=== PATIENT | male | born 1990 | race Caucasian/White ===

== ENCOUNTER 2020-10-06 19:25 | Emergency (ER) | payer OTHER, BC ==
[2020-10-06] MEDS ORDERED: Ketorolac 60 MG/2 ML SDV IM ONE (20:07)
--- NOTE | 2020-10-06 20:10 | EDM.PDOC ---
ED HPI GENERAL MEDICAL PROBLEM - General Chief Complaint: Upper Extremity Injury/Pain Stated Complaint: LEFT SHOULDER PAIN Time Seen by Provider: 10/06/20 19:45 Source of Information: Reports: Patient, RN Notes Reviewed History Limitations: Reports: No Limitations - History of Present Illness INITIAL COMMENTS - FREE TEXT/NARRATIVE: Patient is a 30-year-old male who presents to the ED for left shoulder pain. Patient notes he injured the shoulder sometime ago, and it essentially got better, however the last few days at work, has been doing some strenuous activity and notes that he is aggravated the shoulder again, he states that he is having some popping/clicking noises, and is becoming concerned because this has just started a few days ago. He denies any decrease in muscle tone, and has had no numbness or tingling distal to the injury. He states that the pain is mostly in the anterior portion of the shoulder, with radiation to the posterior portion of the shoulder. He did not take anything for pain management prior to coming to the ER. Patient denies any other sick-like symptoms, fever/chills, cough/shortness of breath, nausea/vomiting/diarrhea. Left Shoulder Pain Score (Numeric/FACES): 5 - Related Data Allergies Allergy/AdvReac Type Severity Reaction Status Date / Time No Known Allergies Allergy Verified 10/06/20 19:38 Home Meds: Home Meds Naproxen [Naprosyn] 500 mg PO Q12HR #14 tab 10/06/20 [Rx] Past Medical History - Past Health History Medical/Surgical History: Denies Medical/Surgical History Social & Family History - Tobacco Use Tobacco Use Status *Q: Never Tobacco User - Recreational Drug Use Recreational Drug Use: No Review of Systems - Review of Systems Review Of Systems: Comprehensive ROS is negative, except as noted in HPI. ED EXAM, GENERAL - Physical Exam Exam: See Below Exam Limited By: No Limitations General Appearance: Alert, WD/WN, No Apparent Distress Respiratory/Chest: No Respiratory Distress, Lungs Clear, Normal Breath Sounds, No Accessory Muscle Use, Chest Non-Tender Cardiovascular: Normal Peripheral Pulses, Regular Rate, Rhythm Peripheral Pulses: 2+: Radial (L), Radial (R) Extremities: Normal Inspection, Normal Range of Motion, Normal Capillary Refill Neurological: Alert, Oriented, Normal Cognition, No Motor/Sensory Deficits Psychiatric: Normal Affect, Normal Mood Skin Exam: Warm, Dry, Intact, Normal Color, No Rash Course - Vital Signs Last Recorded V/S: Last Vital Signs Temp 98.9 F 10/06/20 19:35 Pulse 96 10/06/20 19:35 Resp 16 10/06/20 19:35 BP 158/102 H 10/06/20 19:35 Pulse Ox 98 10/06/20 19:35 - Orders/Labs/Meds Orders: Active Orders 24 hr Category Date Time Status Shoulder Comp Lt [CR] Stat Exams 10/06/20 19:51 Taken Meds: Medications Discontinued Medications Generic Name Dose Route Start Last Admin Trade Name Akanksha PRN Reason Stop Dose Admin Ketorolac Tromethamine 60 mg 10/06/20 20:07 10/06/20 20:20 Toradol IM 10/06/20 20:08 60 mg ONETIME ONE Administration - Re-Assessments/Exams Free Text/Narrative Re-Assessment/Exam: 10/06/20 20:06 Patient presents to the ED for evaluation of his left shoulder pain. We will get x-rays for today's purposes, this does seem like more of a soft tissue injury, suspect for possible labral tear or rotator cuff injury in nature. That is nothing we are going to be able to fix out of the ER, patient is aware of this. I will get him an outpatient MRI order, he will have to follow-up with Dr. Mcmanus for ongoing management. 10/06/20 20:26 Shoulder x-ray has been performed and is negative for any acute bony fracture or other abnormality is appreciated by myself or Dr. Estevez. We will go ahead and get the patient a prescription for Naprosyn an outpatient MRI order and have him follow-up with Dr. Mcmanus for ongoing management. Departure - Departure Time of Disposition: 20:10 Disposition: Home, Self-Care 01 Condition: Good Clinical Impression: Left shoulder pain Qualifiers: Chronicity: acute Qualified Code(s): M25.512 - Pain in left shoulder - Discharge Information *PRESCRIPTION DRUG MONITORING PROGRAM REVIEWED*: No *COPY OF PRESCRIPTION DRUG MONITORING REPORT IN PATIENT CINDY: No Prescriptions: Naproxen [Naprosyn] 500 mg PO Q12HR #14 tab Instructions: Shoulder Pain, [id number] Referrals: PCP,Not In Area [Primary Care Provider] - Forms: ED Department Discharge, ED Return to Work/School Form Additional Instructions: You have been evaluated in the ED for your left shoulder pain. Your x-ray demonstrated no acute fracture or other bony abnormalities. An outpatient MRI order was written on your behalf, our x-ray department will call you to schedule this appointment, if you do not hear from them in roughly 48 hours time, please call our hospital at [phone], and ask for the radiology department. You will need to make an appoint with Dr. Mcmanus for follow-up of the MRI and ongoing management of your shoulder pain. Please use ice as tolerated to the affected area. You may elevate the affected area to provide further relief from swelling. You were given a prescription for Naprosyn, please take 1 tablet every 12 hours for ongoing shoulder pain. Please call Ortho for follow-up and further evaluation Dr. Mcmanus is our orthopedic surgeon, his office number is [phone]. Please call and set up an appointment as soon as possible for further management. Please return to ED if your symptoms should change or worsen. Sepsis Event Note (ED) - Evaluation Sepsis Screening Result: No Definite Risk - Focused Exam Vital Signs: Vital Signs Temp Pulse Resp BP Pulse Ox 10/06/20 19:35 98.9 F 96 16 158/102 H 98 - My Orders Last 24 Hours: My Active Orders 10/06/20 19:51 Shoulder Comp Lt [CR] Stat - Assessment/Plan Last 24 Hours: My Active Orders 10/06/20 19:51 Shoulder Comp Lt [CR] Stat
--- NOTE | 2020-10-07 08:14 | CR ---
Left shoulder: 3 views of left shoulder were obtained. Comparison: No previous studies available. Acromioclavicular joint shows no abnormal inferior spurring. Glenohumeral joint appears within normal limits. No abnormal soft tissue calcifications are seen. No acute fracture, dislocation or other bony abnormality is appreciated. Impression: 1. Nothing acute is seen on left shoulder study. Diagnostic code #1
== END 2020-10-06 20:42 | disposition home or self-care (01) ==
LOC: JD.ED 19:25
DX: M25.512 Pain in left shoulder (principal)
CPT/HCPCS: 73030; 96372; 99283; J1885